=== PATIENT | male | born 1955 | race Caucasian/White ===

== ENCOUNTER 2017-10-20 18:40 | Emergency (ER) | payer OTHER ==
[~2017-10-20] VITALS: Ht 177.8 cm; Wt 58.0 kg
[~2017-10-20 18:40] MED LIST: ALBU8HFA4 IH; ASPI-1182 PO; BUPR75 PO; BUSP10TA23 PO; CARV3 PO; FOLI1 PO; HYDR-3965 PO; IPRAHFA IH; LISI-660 PO; LORA1TAB3 PO; NICO21T TD
[2017-10-20] MEDS ORDERED: ONDANSETRON HCL 4 MG/2 ML VIAL IVP ONE (20:00)
[2017-10-20] MEDS ORDERED: MORPHINE SULFATE 4 MG/ML SYRINGE IVP ONE (20:00)
[2017-10-20] MEDS ORDERED: SODIUM CHLORIDE 0.9% 1,000 ML IV ONE (20:00)
[2017-10-20] MEDS ORDERED: OxyCODONE HCL/ACETAMINOPHEN 10-325 MG TABLET PO ONE (23:00)
[2017-10-20 23:51] VITALS: BP 137/70
== END 2017-10-21 00:41 | disposition home or self-care (01) ==
LOC: EMS 18:42
DX: M54.5 Low back pain (principal); M54.6 Pain in thoracic spine; I10 Essential (primary) hypertension; G89.29 Other chronic pain; Z79.82 Long term (current) use of aspirin
CPT/HCPCS: 72128; 72131; 96374; 96375; 99284; J2270; J2405; J7030

== ENCOUNTER 2018-01-04 21:22 | Emergency (ER) | payer OTHER ==
[~2018-01-04] VITALS: Ht 172.7 cm; Wt 67.3 kg
[2018-01-05] MEDS ORDERED: PERTUSS(ACELL),DIPH,TET VAC/PF 0.5 ML VIAL IM ONE (00:30)
[2018-01-05 00:33] VITALS: BP 124/78
== END 2018-01-05 00:47 | disposition home or self-care (01) ==
LOC: EMS 21:23
DX: S50.02XA Contusion of left elbow, initial encounter (principal); I10 Essential (primary) hypertension; G89.29 Other chronic pain; Z79.82 Long term (current) use of aspirin; W19.XXXA Unspecified fall, initial encounter; Y93.89 Activity, other specified; Y92.89 Other specified places as the place of occurrence of the external cause; Y99.8 Other external cause status
CPT/HCPCS: 90471; 90715; 99284